=== PATIENT | male | born 1955 | race Caucasian/White ===

== ENCOUNTER 2016-07-09 21:07 | Observation (INO) | payer BC, OTHER ==
[~2016-07-09] VITALS: Ht 175.3 cm; Wt 78.8 kg
[~2016-07-09 21:07] MED LIST: OXYC1TAB3 PO
[2016-07-09] MEDS ORDERED: NITROGLYCERIN OINT 2% 1GM PACKET EXT STA (21:20)
[2016-07-09] MEDS ORDERED: SODIUM CHLORIDE 0.9% 1000ML 500 ML IV STA (21:20)
--- NOTE | 2016-07-09 21:26 | EMERGENCY ROOM VISIT NOTE ---
History Report prepared by Michelle: Glenroy Morris Under the Supervision of: Dr. León Bruce M.D. First contact with patient: 21:11 Chief Complaint: CHEST PAIN Stated Complaint: CHEST PAIN Nursing Triage Summary: Patient presents ALS from home for evaluation of midsternal chest pain that began 2 days ago. Associates SOB. Pain relieved after 1 Nitro spray and 4 baby ASA in route. History of Present Illness The patient is a 61 year old male who presents to the Emergency Room via ALS with complaints of intermittent midsternal chest pain that began 2 days ago. When the patient experiences the pain, it lasts for about 20 minutes. The patient rates his pain tonight an 8/10. Associated symptoms include shortness of breath, nausea, and dizziness. The patient was given 1 nitro and 4 baby Aspirin en-route which offered relief of the pain. He denies a cough, fevers, shoulder pain, or any additional associated symptoms. Source of History: patient Onset: 2 days ago Position: chest Symptom Intensity: 8/10 Timing: intermittent Modifying Factors (Relieving): other (Nitro and Aspirin ) Associated Symptoms: + SOB, + nausea Note: Additional associated symptoms include dizziness Review of Systems See HPI for pertinent positives & negatives. A total of 10 systems reviewed and were otherwise negative. Past Medical & Surgical Medical Problems: (1) Chest pain Social History Problems: (1) Alcohol use Family History Depression Hypertension Kidney disease Social History Smoking Status: Current Every Day Smoker Alcohol Use: occasionally Drug Use: none Housing Status: lives with family Occupation Status: employed Current/Historical Medications Scheduled Cephalexin Monohydrate (Keflex), 500 MG PO QID Metformin Hcl (Glucophage), 500 MG PO QAM Allergies Coded Allergies: No Known Allergies (Unverified , 01/15/16) Physical Exam Vital Signs Date Time Temp Pulse Resp B/P Pulse Ox O2 Delivery O2 Flow Rate FiO2 07/09/16 21:19 94 Room Air 07/09/16 21:15 78 07/09/16 21:14 36.7 85 18 116/86 94 Room Air 07/09/16 21:14 94 Room Air Physical Exam GENERAL: Patient is in no acute distress. HEENT: No acute trauma, normocephalic atraumatic, mucous membranes moist, no nasal congestion, no scleral icterus. NECK: No stridor, no adenopathy, no meningismus, trachea is midline. LUNGS: Clear to auscultation bilaterally, no wheeze, no rhonchi, breath sounds equal. HEART: Without murmurs gallops or rubs, regular rate and rhythm. CHEST: Mildly tender to lower chest wall, primarily over the sternum. ABDOMEN: Soft, nontender, bowel sounds positive, no hernias, no peritonitis. EXTREMITIES: No cyanosis or edema, full range of motion of all the joints without pain or difficulty, no signs for acute trauma. NEUROLOGIC: Oriented x 3, no acute motor or sensory deficits, no focal weakness. SKIN: No rash, no jaundice, no diaphoresis. Medical Decision & Procedures ER Provider Diagnostic Interpretation: X-ray results as stated below per interpretation by me and the radiologist: CHEST ONE VIEW PORTABLE CLINICAL HISTORY: Atypical chest pain COMPARISON STUDY: No previous studies for comparison. FINDINGS: The heart is at the upper limits of normal in size. There is mild asymmetric interstitial thickening right greater than left. This could represent asymmetric edema, interstitial inflammatory process, or be chronic. There are no pleural effusions. There is no pneumothorax.[ IMPRESSION: Mild age-indeterminate interstitial thickening right greater than left. Electronically signed by: Tye Layton M.D. 07/09/2016 9:36 PM Dictated Date/Time: 07/09/2016 9:35 PM Laboratory Results 07/09/16 20:48 07/09/16 20:48 Test 07/09/16 20:48 Red Blood Count 4.86 M/uL (4.7-6.1) Mean Corpuscular Volume 87.4 fL (80-100) Mean Corpuscular Hemoglobin 31.3 pg (25-34) Mean Corpuscular Hemoglobin Concent 35.8 g/dl (32-36) RDW Standard Deviation 40.9 fL (36.4-46.3) RDW Coefficient of Variation 12.7 % (11.5-14.5) Mean Platelet Volume 11.6 fL (7.4-10.4) Anion Gap 8.0 mmol/L (3-11) Est Creatinine Clear Calc Drug Dose 69.7 ml/min Estimated GFR () 82.9 Estimated GFR (Non- 71.6 BUN/Creatinine Ratio 12.3 (10-20) Calcium Level 8.2 mg/dl (8.5-10.1) Total Bilirubin 0.3 mg/dl (0.2-1) Alanine Aminotransferase (ALT/SGPT) 28 U/L (12-78) Alkaline Phosphatase 83 U/L (45-117) Creatine Kinase MB 0.8 ng/ml (0.5-3.6) Creatine Kinase MB Ratio (0-3.0) Troponin I < 0.015 ng/ml (0-0.045) Total Protein 7.0 gm/dl (6.4-8.2) Albumin 3.6 gm/dl (3.4-5.0) Globulin 3.4 gm/dl (2.5-4.0) Albumin/Globulin Ratio 1.1 (0.9-2) Lipase 203 U/L (73-393) Laboratory results reviewed by me. Medications Administered Medications (Trade) Dose Ordered Sig/Louisa Route Start Time Stop Time Status Last Admin Dose Admin Sodium Chloride (Nss 1000ml) 500 ml @ 999 mls/hr Q31M STAT IV 07/09/16 21:20 07/09/16 21:50 DC 07/09/16 21:45 999 MLS/HR Nitroglycerin (Nitroglycerin 2% Oint) 1 inch NOW STAT EXT 07/09/16 21:20 07/09/16 21:24 DC 07/09/16 21:45 1 INCH ECG Indication: chest pain Rate (beats per minute): 79 Rhythm: normal sinus Findings: no acute ischemic change, no ectopy ED Course 2117: The patient was evaluated in room A11. A complete history and physical exam was performed. 2119: Ordered Nitroglycerin 1 inch EXT, Sodium Chloride 500 ml @ 999 mls/hr IV. 2211: Discussed the patient's case with Dr. Hawk ([facility]) . The patient will be evaluated for further management. Medical Decision Differential diagnosis includes but is not limited to cardiac ischemia, SD, musculoskeletal pain, pneumonia, pulmonary embolism, pneumothorax, aortic dissection. There is no leukocytosis or concerning anemia. No significant electrolyte abnormality, kidney failure or hepatitis. There is no coagulopathy. EKG shows a normal sinus rhythm, no acute ischemia. Cardiac enzyme testing 1 is not consistent with acute cardiac injury. Chest x-ray shows no mediastinal widening , pneumonia or pneumothorax. The patient presents with worsening chest pain, at times, the pain is exertional and resolves with rest. He does have multiple cardiac risk factors. I do think further cardiac workup is warranted. Of note, the patient's chest pain this evening was resolved with nitroglycerin. Patient received IV saline and nitroglycerin paste, he is comfortable. I spoke with the patient and case management. The on-call hospitalist was consulted. Consults Time Called: 2203 Consulting Physician: Dr. Hawk ([facility]) Returned Call: [phone] Discussed the patient's case with Dr. Hawk ([facility]) . The patient will be evaluated for further management. Impression Primary Impression: Precordial chest pain Scribe Attestation The scribe's documentation has been prepared under my direction and personally reviewed by me in its entirety. I confirm that the note above accurately reflects all work, treatment, procedures, and medical decision making performed by me. Departure Information Dispostion Being Evaluated By Hospitalist Referrals No Doctor, Assigned (PCP) Patient Instructions My [facility]
--- NOTE | 2016-07-09 21:27 | EMERGENCY ROOM VISIT NOTE ---
History Report prepared by Michelle: Glenroy Morris Under the Supervision of: Dr. León Bruce M.D. First contact with patient: 21:11 Chief Complaint: CHEST PAIN Stated Complaint: CHEST PAIN History of Present Illness The patient is a 61 year old male who presents to the Emergency Room with complaints of chest pain Review of Systems See HPI for pertinent positives & negatives. A total of 10 systems reviewed and were otherwise negative. Past Medical & Surgical Social History Problems: (1) Alcohol use Family History Depression Hypertension Kidney disease Social History Smoking Status: Current Every Day Smoker Alcohol Use: occasionally Drug Use: none Housing Status: lives with family Occupation Status: employed Current/Historical Medications Scheduled PRN Oxycodone Immediate Rel Tab (Roxicodone Ir), 1-2 TAB PO Q4H PRN for Severe Pain Allergies Coded Allergies: No Known Allergies (Unverified , 01/15/16) Physical Exam Vital Signs Date Time Temp Pulse Resp B/P Pulse Ox O2 Delivery O2 Flow Rate FiO2 07/09/16 21:19 94 Room Air 07/09/16 21:15 78 07/09/16 21:14 36.7 85 18 116/86 94 Room Air 07/09/16 21:14 94 Room Air Physical Exam GENERAL: Patient is in no acute distress. HEENT: No acute trauma, normocephalic atraumatic, mucous membranes moist, no nasal congestion, no scleral icterus. NECK: No stridor, no adenopathy, no meningismus, trachea is midline. LUNGS: Clear to auscultation bilaterally, no wheeze, no rhonchi, breath sounds equal. HEART: Without murmurs gallops or rubs, regular rate and rhythm. CHEST: Mildly tender to lower chest wall, over the sternum. ABDOMEN: Soft, nontender, bowel sounds positive, no hernias, no peritonitis. EXTREMITIES: No cyanosis or edema, full range of motion of all the joints without pain or difficulty, no signs for acute trauma. NEUROLOGIC: Oriented x 3, no acute motor or sensory deficits, no focal weakness. SKIN: No rash, no jaundice, no diaphoresis. Medical Decision & Procedures Laboratory Results 07/09/16 20:48 Test 07/09/16 20:48 07/09/16 21:20 Red Blood Count 4.86 M/uL (4.7-6.1) Mean Corpuscular Volume 87.4 fL (80-100) Mean Corpuscular Hemoglobin 31.3 pg (25-34) Mean Corpuscular Hemoglobin Concent 35.8 g/dl (32-36) RDW Standard Deviation 40.9 fL (36.4-46.3) RDW Coefficient of Variation 12.7 % (11.5-14.5) Mean Platelet Volume 11.6 fL (7.4-10.4) Creatine Kinase MB Ratio (0-3.0) ED Course 2112: The patient was evaluated in room A11. A complete history and physical exam was performed. Scribe Attestation The scribe's documentation has been prepared under my direction and personally reviewed by me in its entirety. I confirm that the note above accurately reflects all work, treatment, procedures, and medical decision making performed by me. Departure Information Referrals No Doctor, Assigned (PCP) Patient Instructions My [facility]
[2016-07-09 21:34] LABS: HEMATOCRIT 42.5 % (42-52); MEAN CELL VOLUME 87.4 fL (80-100); MEAN CORPUSCULAR HEMOGLOBIN 31.3 pg (25-34); MEAN CORPUSCULAR HGB CONC 35.8 g/dl (32-36); MEAN PLATELET VOLUME 11.6 fL (7.4-10.4); PLATELET COUNT 186 K/uL (130-400); RED BLOOD COUNT 4.86 M/uL (4.7-6.1)
--- NOTE | 2016-07-09 21:38 | DIAGNOSTIC IMAGING REPORT ---
CHEST ONE VIEW PORTABLE CLINICAL HISTORY: Atypical chest pain COMPARISON STUDY: No previous studies for comparison. FINDINGS: The heart is at the upper limits of normal in size. There is mild asymmetric interstitial thickening right greater than left. This could represent asymmetric edema, interstitial inflammatory process, or be chronic. There are no pleural effusions. There is no pneumothorax.[ IMPRESSION: Mild age-indeterminate interstitial thickening right greater than left. Electronically signed by: Tye Layton M.D. 07/09/2016 9:36 PM Dictated Date/Time: 07/09/2016 9:35 PM
[2016-07-09] MEDS ORDERED: GLC/500 PO (21:55)
[2016-07-09] MEDS ORDERED: CEPH500C2 PO (21:56)
[2016-07-09 21:59] LABS: ALB/GLOB RATIO 1.1 (0.9-2); ALKALINE PHOSPHATASE 83 U/L (45-117); ALT/SGPT 28 U/L (12-78); BLOOD UREA NITROGEN 14 mg/dl (7-18); BUN/CREATININE RATIO 12.3 (10-20); CALCIUM 8.2 mg/dl (8.5-10.1); CARBON DIOXIDE 25 mmol/L (21-32); CHLORIDE 107 mmol/L (98-107); GLUCOSE 203 mg/dl (70-99); SODIUM 140 mmol/L (136-145)
--- NOTE | 2016-07-09 22:22 | History and Physical ---
History & Physical Date & Time of Service: Jul 09, 2016 at 22:23 Chief Complaint: Chest Pain Primary Care Physician: Ko Agustin M.D. History of Present Illness Source: patient This is a 61 yo Male with no significant past medical hx except for chronic tobacco abuse ,borderline Diabetes , hx of ETOH abuse presents to ED with complain of chest pain sub sternal intermittent for past 2- 3 days describes pain as pressure " someone sitting on chest " brought on by exertion , associated with nausea , SOB ,dizzy spell no radiation to arm or jaw pain resolves with rest had not sick any medical help today evening had continued discomfort -came to ED symptom relieved after SL nitro EKG NSR , no ischemic change cardiac markers negative pt is completely symptom free no prior hx of ND or CAD Family History Depression Hypertension Kidney disease Family History Problem Relation Age of Onset Comments COPD Mother Diabetes Sister Diabetes Sister Stroke Sister Social History Smoking Status: Current Every Day Smoker Alcohol Use: heavy Drug Use: none Marital Status: Occupational Status: employed Allergies Coded Allergies: No Known Allergies (Unverified , 01/15/16) Home Medications Scheduled Cephalexin Monohydrate (Keflex), 500 MG PO QID Metformin Hcl (Glucophage), 500 MG PO QAM Review of Systems Constitutional: + sweats, + weakness Respiratory: + dyspnea on exertion, + shortness of breath Cardiovascular: + chest pain, + palpitations, + problem reported (as outlined in H&P ) Abdomen: No GI bleeding, No constipation, No diarrhea, No nausea, No pain, No problem reported, No vomiting Musculoskeletal: No calf pain, No joint pain, No muscle pain, No problem reported, No swelling Neurologic: + vertigo, + weakness Psychiatric: + anxiety Physical Exam Vital Signs Date Time Temp Pulse Resp B/P Pulse Ox O2 Delivery O2 Flow Rate FiO2 07/09/16 21:19 94 Room Air 07/09/16 21:15 78 07/09/16 21:14 36.7 85 18 116/86 94 Room Air 07/09/16 21:14 94 Room Air General Appearance: no apparent distress Head: normocephalic, atraumatic Eyes: normal inspection, sclerae normal ENT: pharynx normal Neck: supple, no adenopathy, thyroid normal, no JVD, no carotid bruits, trachea midline Respiratory/Chest: chest non-tender, lungs clear, normal breath sounds, no respiratory distress, no accessory muscle use Cardiovascular: regular rate, rhythm, no edema, no gallop, no JVD, no murmur, normal peripheral pulses Abdomen/GI: normal bowel sounds, non tender, soft Extremities/Musculoskelatal: no calf tenderness, normal capillary refill, no pedal edema, + pertinent finding (left great toe ingworn toe nail , no flactuation or abscess ) Neurologic/Psych: no motor/sensory deficits, alert, normal mood/affect Skin: normal color, warm/dry, no rash Lymphatic: no adenopathy Diagnostics Laboratory Results Results Past 24 Hours Test 07/09/16 20:48 07/09/16 22:13 Range/Units White Blood Count 7.70 4.8-10.8 K/uL Red Blood Count 4.86 4.7-6.1 M/uL Hemoglobin 15.2 14.0-18.0 g/dL Hematocrit 42.5 42-52 % Mean Corpuscular Volume 87.4 80-100 fL Mean Corpuscular Hemoglobin 31.3 25-34 pg Mean Corpuscular Hemoglobin Concent 35.8 32-36 g/dl RDW Standard Deviation 40.9 36.4-46.3 fL RDW Coefficient of Variation 12.7 11.5-14.5 % Platelet Count 186 130-400 K/uL Mean Platelet Volume 11.6 7.4-10.4 fL Prothrombin Time 9.7 9.0-12.0 SECONDS Prothromb Time International Ratio 0.9 0.9-1.1 Activated Partial Thromboplast Time 23.7 21.0-31.0 SECONDS Partial Thromboplastin Ratio 0.9 Sodium Level 140 136-145 mmol/L Potassium Level 3.5-5.1 mmol/L Chloride Level 107 98-107 mmol/L Carbon Dioxide Level 25 21-32 mmol/L Anion Gap 8.0 3-11 mmol/L Blood Urea Nitrogen 14 7-18 mg/dl Creatinine 1.10 0.60-1.40 mg/dl Est Creatinine Clear Calc Drug Dose 69.7 ml/min Estimated GFR () 82.9 Estimated GFR (Non- 71.6 BUN/Creatinine Ratio 12.3 10-20 Random Glucose 203 70-99 mg/dl Calcium Level 8.2 8.5-10.1 mg/dl Total Bilirubin 0.3 0.2-1 mg/dl Aspartate Amino Transf (AST/SGOT) 15-37 U/L Alanine Aminotransferase (ALT/SGPT) 28 12-78 U/L Alkaline Phosphatase 83 45-117 U/L Total Creatine Kinase 39-308 U/L Creatine Kinase MB 0.8 0.5-3.6 ng/ml Creatine Kinase MB Ratio 0-3.0 Troponin I < 0.015 0-0.045 ng/ml Total Protein 7.0 6.4-8.2 gm/dl Albumin 3.6 3.4-5.0 gm/dl Globulin 3.4 2.5-4.0 gm/dl Albumin/Globulin Ratio 1.1 0.9-2 Lipase 203 73-393 U/L Chemistry Specimen Hemolysis CXR normal Normal EKG Impression Assessment and Plan CHEST PAIN : atypical for cardiac ischemia /angina has been ongoing for 2-3 days non ischemic change in EKG, initial cardiac marker negative D dimer wnl pro BNP 8 -no evidence of CHF CXray shows rt sided interstitial prominence -possible chronic 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 He states that he could drink 30 beers a day and a bottle of two of whiskey Quit drinking in April 2016 denies of drug use. Serum ETOH level , urine tox screen ordered INGROWN TOE NAIL on PO Keflex 500 mg PO QID for 10 days ( started on 07/02/16 ) continued no evidence of cellulitis or abscess cont out pt Podiatry follow up FULL CODE DISPOSITION : possible discharge home tomorrow if cardiac testing /stress test negative for ischemia Medicine follow up with Dr Jonna March Level of Care Telemetry Resuscitation Status FULL RESUSCITATION VTE Prophylaxis Given or contraindicated: Unfractionated heparin SQ
[2016-07-09 22:53] LABS: INR 0.9 (0.9-1.1); PARTIAL THROMBOPLASTIN RATIO 0.9; PROTHROMBIN TIME (PATIENT) 9.8 SECONDS (9.0-12.0)
[2016-07-09] MEDS ORDERED: GLUCOSE 40% GEL 15 GM TUBE PO PRN (23:00)
[2016-07-09] MEDS ORDERED: ONDANSETRON INJ 2 MG/ML 2 ML VIAL IV PRN (23:00)
[2016-07-09] MEDS ORDERED: ACETAMINOPHEN 325 MG TAB PO PRN (23:00)
[2016-07-09] MEDS ORDERED: ZOLPIDEM TARTRATE 5 MG TAB PO PRN (23:00)
[2016-07-09] MEDS ORDERED: NITROGLYCERIN 0.4 MG SL PER TAB CHARGE SL PRN (23:00)
[2016-07-09] MEDS ORDERED: POLYETHYLENE (MIRALAX) 17 GM PACK PO PRN (23:00)
[2016-07-09] MEDS ORDERED: DEXTROSE 50% 50 ML SYR IV PRN (23:00)
[2016-07-09] MEDS ORDERED: MAGNESIUM HYDROXIDE SUSP 30 ML UDC PO PRN (23:00)
[2016-07-09] MEDS ORDERED: GLUCAGON FOR INJ 1 MG VIAL SQ PRN (23:00)
[2016-07-09] MEDS ORDERED: ALUMINUM/MAGNESIUM/SIMETH (MAALOX MAX) 30 ML UDC PO PRN (23:00)
[2016-07-09] MEDS ORDERED: GLUCOSE 10 TABS/TUBE PO PRN (23:00)
[2016-07-09] MEDS ORDERED: IV FLUIDS COMPLETED PRN (23:15)
[2016-07-10 00:30] VITALS: BP 119/68; PULSE 70; TEMP 36.5; O2SAT 92; Ht 175.3 cm; Wt 78.8 kg
[2016-07-10] MEDS: HEPARIN SOD 5000 UNIT/0.5 ML CARP SQ SCH ×2 (06:00→13:12)
[2016-07-10 06:01] LABS: CKMB/CK RATIO 1.7 (0-3.0)
[2016-07-10 07:09] VITALS: BP 125/73; PULSE 69; TEMP 36.6; O2SAT 91
[2016-07-10] MEDS: INSULIN HUMAN REGULAR SC SCH ×2 (07:57→11:53)
[2016-07-10 08:00] VITALS: O2SAT 92
[2016-07-10 08:33] LABS: CHOLESTEROL/HDL RATIO 3.5
[2016-07-10] MEDS ORDERED: ASPIRIN 81 MG ECTAB PO SCH (09:00)
[2016-07-10 10:02] LABS: BENZODIAZEPINE, URINE NEG (NEG); COCAINE,URINE NEG (NEG); PHENCYCLIDINE, URINE NEG (NEG)
[2016-07-10 11:16] VITALS: BP 118/78; PULSE 74; TEMP 36.8; O2SAT 94
--- NOTE | 2016-07-10 11:25 | EXERCISE STRESS ECHO ---
*NOTICE TO RECEIVING LIBERTARIAN AGENCY This information is strictly Confidential and protected under [place] law. [place] law prohibits you from making any further disclosure of this information unless further disclosure is expressly permitted by the written consent of the person to whom it pertains or is authorized by law. A general authorization for the release of medical or other information is not sufficient for this purpose. Hospital accepts no responsibility if the information is made available to any other person, INCLUDING THE PATIENT. Interpretation Summary * Name: KHLOE HOLLOWAY Study Date: 07/10/2016 09:19 AM BP: 132/76 mmHg * Patient Location: [facility]\S\N287\S\1 HR: 64 * : 1955 (M/d/yyyy) Gender: Male Height: 69 in * Age: 61 yrs Ethnicity: CA Weight: 176 lb * Ordering Physician: Elizabeth Hawk * Referring Physician: Self, Referred * Performed By: Levy Ward RCS * * Reason For Study: Chest Pain * BSA: 2.0 m2 * -- Conclusions -- * Nondiagnostic exercise stress echocardiogram. * Poor post-stress windows due to lung disease and patient's inability to cooperate with breathing. * No arrhythhmias. * No ischemic EKG changes. * Symptom of chest tightness was not reproduced with exercise. * Normal HR and BP response to exercise. * Average exercise tolerance. * At rest, normal LV chamber size and wall thickness. * Normal LV systolic function, EF 55-60%. * No segmental left ventricular wall motion abnormalities are noted. * Grade I diastolic dysfunction. * No significant valvular pathology. Procedure Details * ECHOEX, CPT #[id number] * ECHO COLOR FLOW, CPT #[id number] * ECHO DOPPLER, CPT #[id number] Left Ventricle * The left ventricle is normal in size. * There is normal left ventricular wall thickness. * Ejection Fraction = 55-60%. * Left ventricular systolic function is normal. * No segmental left ventricular wall motion abnormalities are noted. * The left ventricular wall motion is normal at rest. Right Ventricle * The right ventricular cavity size is normal (basal dimension <4.2 cm in right ventricular apical 4-chamber view). * The right ventricular systolic function is normal as assessed by tricuspid annular plane systolic excursion (TAPSE) (normal >1.5 cm). Atria * The left atrial size is normal. * Right atrium not well visualized. * Right atrial size is normal. * No ASD detected; PFO is not assessed. Mitral Valve * The mitral valve is normal in structure and function. Tricuspid Valve * The tricuspid valve is normal in structure and function. Aortic Valve * The aortic valve is normal in structure and function. Pulmonic Valve * The pulmonary valve is not well seen, but the Doppler examination is normal without significant regurgitation or stenosis. Great Vessels * The aortic root is normal size. Pericardium * There is no pericardial effusion. Stress Parameters * Normal baseline electrocardiogram. * Stress ECG: No ST changes. No arrhythmias. * No arrhythmia were noted with stress. * The stress portion of this study was personally supervised by the undersigned interpreting physician. * Rest heart rate was '64' BPM. * Rest blood pressure was '132/76' * Maximum heart rate achieved was 146 bpm. * Maximum heart rate was 92 % of maximum age-predicted heart rate. * Maximum blood pressure was '186/77' * Total exercise time was '7:32' * Maximum exercise MET level achieved was '9.3' METS * Maximum treadmill speed was '3.4' miles per hour. * Maximum treadmill elevation was '14'% grade. * Exercise was terminated due to 'fatigue after achieving target heart rate' * Normal blood pressure response to exercise. Left Ventricular Diastolic Function * Grade I diastolic dysfunction, (abnormal relaxation pattern). MMode 2D Measurements and Calculations IVSd 10 cm IVSs 1.2 cm LVIDd 5.2 cm LVIDs 3.6 cm LVPWd 1.0 cm LVPWs 1.3 cm IVS/LVPW 0.97 FS 29.6 % EDV(Teich) 127.4 ml ESV(Teich) 55.7 ml EF(Teich) 56.3 % EDV(cubed) 137.7 ml ESV(cubed) 48.0 ml EF(cubed) 65.1 % % IVS thick 21.2 % % LVPW thick 23.3 % LV mass(C)d 195.3 grams LV mass(C)dI 99.8 grams/m\S\2 LV mass(C)s 150.5 grams LV mass(C)sI 76.9 grams/m\S\2 CO(Teich) 4.6 l/min CI(Teich) 2.3 l/min/m\S\2 SV(Teich) 71.8 ml SI(Teich) 36.7 ml/m\S\2 CO(cubed) 5.7 l/min CI(cubed) 2.9 l/min/m\S\2 SV(cubed) 89.7 ml SI(cubed) 45.8 ml/m\S\2 Ao root diam 3.2 cm Ao root area 8.2 cm\S\2 ACS 1.8 cm LA dimension 3.7 cm LA/Ao 1.1 LVAd ap4 33.9 cm\S\2 LVLd ap4 8.8 cm EDV(MOD-sp4) 109.0 ml LVAs ap4 19.5 cm\S\2 LVLs ap4 7.1 cm ESV(MOD-sp4) 46.0 ml EF(MOD-sp4) 57.8 % LVAd ap2 33.8 cm\S\2 LVLd ap2 9.1 cm EDV(MOD-sp2) 106.0 ml LVAs ap2 18.5 cm\S\2 LVLs ap2 7.2 cm ESV(MOD-sp2) 42.0 ml EF(MOD-sp2) 60.4 % CO(MOD-sp4) 4.0 l/min CI(MOD-sp4) 2.1 l/min/m\S\2 SV(MOD-sp4) 63.0 ml SI(MOD-sp4) 32.2 ml/m\S\2 CO(MOD-sp2) 4.1 l/min CI(MOD-sp2) 2.1 l/min/m\S\2 SV(MOD-sp2) 64.0 ml SI(MOD-sp2) 32.7 ml/m\S\2 Doppler Measurements and Calculations MV E max mary jo 93.2 cm/sec MV A max mary jo 117.2 cm/sec MV E/A 0.79 MV P1/2t max mary jo 78.6 cm/sec MV P1/2t 88.6 msec MVA(P1/2t) 2.5 cm\S\2 MV dec slope 259.8 cm/sec\S\2 MV dec time 0.21 sec Ao V2 max 138.8 cm/sec Ao max PG 7.7 mmHg Ao max PG (full) 2.5 mmHg LV V1 max PG 5.2 mmHg LV V1 max 113.5 cm/sec PA V2 max 125.0 cm/sec PA max PG 6.3 mmHg PI max mary jo 220.2 cm/sec PI max PG 19.4 mmHg PI dec slope 153.8 cm/sec\S\2 PI P1/2t 419.3 msec TR max mary jo 247.9 cm/sec
[2016-07-10 12:00] VITALS: O2SAT 94
[2016-07-10 13:49] LABS: CKMB/CK RATIO 1.1 (0-3.0)
--- NOTE | 2016-07-10 14:17 | Progress Note ---
Internal Med Progress Note Date of Service: Jul 10, 2016. Provider Documentation: SUBJECTIVE: Patient is walking around his room and is alert/awake. Denies any chest pain/ pressure or SOB. No other new change. OBJECTIVE: Vital Signs-as noted below Examination: General Appearance: Alert / Awake and is in no apparent distress Head: normocephalic, atraumatic Eyes: normal inspection, sclerae normal ENT: pharynx normal Neck: supple, no adenopathy, thyroid normal, no JVD, no carotid bruits, trachea midline Respiratory/Chest: chest non-tender, lungs clear, normal breath sounds, no respiratory distress, no accessory muscle use Cardiovascular: regular rate, rhythm, no edema, no gallop, no JVD, no murmur, normal peripheral pulses Abdomen/GI: normal bowel sounds, non tender, soft Extremities/Musculoskeletal: no calf tenderness, normal capillary refill, no pedal edema, left great toe ingworn toe nail , no fluctuation or abscess. Neurologic/Psych: no motor/sensory deficits, alert, normal mood/affect Skin: normal color, warm/dry, no rash Lymphatic: no adenopathy Lab data as noted below. ASSESSMENT & PLAN: Nondiagnostic Exercise Stress Echocardiogram. Poor post-stress windows due to lung disease and patient's inability to cooperate with breathing. No arrhythmias. No ischemic EKG changes. Symptom of chest tightness was not reproduced with exercise. Normal HR and BP response to exercise. Average exercise tolerance. At rest, normal LV chamber size and wall thickness. Normal LV systolic function, EF 55-60%. No segmental left ventricular wall motion abnormalities are noted. Grade I diastolic dysfunction. No significant valvular pathology. Chest Pain: Resolved now. Likely not cardiac in etiology. Clinically & hemodynamically stable.- -Serial Troponin are negative. -Non ischemic change in EKG -Chest Xray shows rt sided interstitial prominence -possible chronic change -fpc heavy smoker -Fasting lipid profile shows HDL 44 & LDL 88. -Reviewed Stress Echo. Nuclear Stress will be done as outpatient. Active Tobacco Use: Smokes 1.5 pk Cig a day since age 13 -Smoking cessation counselling provided -Ordered for nicotine patch Diabetes Type II: Hb A1 C 6.7 -takes Metformin as outpatient which will be resumed after discharge. -Dietary instructions given History Alcohol Use: Patient has been a heavy drinker for years. He states that he could drink 30 beers a day and a bottle of two of whiskey -Quit drinking in April 2016 Ingrown Toe Nail: Continued PO Keflex 500 mg PO QID for 10 days ( started on 06/17 ) -No evidence of cellulitis or abscess -Continue out pt Podiatry follow up Code Status: FULL CODE Disposition: Discharge home later today Medicine follow up with PCP on 07/14/2016 @ 10.50 AM. Follow up with cardiology in 1-2 weeks, Vital Signs: Date Time Temp Pulse Resp B/P Pulse Ox O2 Delivery O2 Flow Rate FiO2 07/10/16 12:00 94 Room Air 07/10/16 11:16 36.8 74 18 118/78 94 07/10/16 08:00 92 Room Air 07/10/16 07:09 36.6 69 18 125/73 91 07/10/16 04:00 Room Air 07/10/16 00:30 36.5 70 14 119/68 92 Room Air 07/09/16 23:02 81 20 127/78 93 Room Air 07/09/16 21:19 94 Room Air 07/09/16 21:15 78 07/09/16 21:14 36.7 85 18 116/86 94 Room Air 07/09/16 21:14 94 Room Air Lab Results: Results Past 24 Hours Test 07/09/16 20:48 07/09/16 22:30 07/10/16 00:20 07/10/16 05:24 Range/Units White Blood Count 7.70 4.8-10.8 K/uL Red Blood Count 4.86 4.7-6.1 M/uL Hemoglobin 15.2 14.0-18.0 g/dL Hematocrit 42.5 42-52 % Mean Corpuscular Volume 87.4 80-100 fL Mean Corpuscular Hemoglobin 31.3 25-34 pg Mean Corpuscular Hemoglobin Concent 35.8 32-36 g/dl RDW Standard Deviation 40.9 36.4-46.3 fL RDW Coefficient of Variation 12.7 11.5-14.5 % Platelet Count 186 130-400 K/uL Mean Platelet Volume 11.6 7.4-10.4 fL Prothrombin Time 9.8 9.0-12.0 SECONDS Prothromb Time International Ratio 0.9 0.9-1.1 Activated Partial Thromboplast Time 22.6 21.0-31.0 SECONDS Partial Thromboplastin Ratio 0.9 Sodium Level 140 136-145 mmol/L Potassium Level 4.0 3.5-5.1 mmol/L Chloride Level 107 98-107 mmol/L Carbon Dioxide Level 25 21-32 mmol/L Anion Gap 8.0 3-11 mmol/L Blood Urea Nitrogen 14 7-18 mg/dl Creatinine 1.10 0.60-1.40 mg/dl Est Creatinine Clear Calc Drug Dose 69.7 ml/min Estimated GFR () 82.9 Estimated GFR (Non- 71.6 BUN/Creatinine Ratio 12.3 10-20 Random Glucose 203 70-99 mg/dl Calcium Level 8.2 8.5-10.1 mg/dl Total Bilirubin 0.3 0.2-1 mg/dl Aspartate Amino Transf (AST/SGOT) 12 15-37 U/L Alanine Aminotransferase (ALT/SGPT) 28 12-78 U/L Alkaline Phosphatase 83 45-117 U/L Total Creatine Kinase 82 66 39-308 U/L Creatine Kinase MB 0.8 1.1 0.5-3.6 ng/ml Creatine Kinase MB Ratio 1.7 0-3.0 Troponin I < 0.015 < 0.015 0-0.045 ng/ml Total Protein 7.0 6.4-8.2 gm/dl Albumin 3.6 3.4-5.0 gm/dl Globulin 3.4 2.5-4.0 gm/dl Albumin/Globulin Ratio 1.1 0.9-2 Lipase 203 73-393 U/L Chemistry Specimen Hemolysis D-Dimer 390 0-500 ug/L FEU Pro-B-Type Natriuretic Peptide 8 0-900 pg/ml Ethyl Alcohol mg/dL < 3.0 0-3 mg/dl Triglycerides Level 102 0-150 mg/dl Cholesterol Level 152 0-200 mg/dl HDL Cholesterol 44 mg/dl LDL Cholesterol, Calculated 88 mg/dl VLDL Cholesterol, Calculated 20 mg/dl Cholesterol/HDL Ratio 3.5 Hepatitis C Antibody Screen NEG NEG Test 07/10/16 07:20 07/10/16 09:20 07/10/16 11:32 07/10/16 12:55 Range/Units Bedside Glucose 115 125 70-99 mg/dl Urine Opiates Screen NEG NEG Urine Methadone, Qualitative NEG NEG Urine Barbiturates NEG NEG Urine Phencyclidine (PCP) Level NEG NEG Ur Amphetamine/Methamphetamine NEG NEG MDMA (Ecstasy) Screen NEG NEG Urine Benzodiazepines Screen NEG NEG Urine Cocaine Metabolite NEG NEG Urine Marijuana (THC) NEG NEG Total Creatine Kinase 79 39-308 U/L Creatine Kinase MB 0.9 0.5-3.6 ng/ml Creatine Kinase MB Ratio 1.1 0-3.0 Troponin I < 0.015 0-0.045 ng/ml
--- NOTE | 2016-07-10 14:30 | Discharge Instructions ---
Discharge Instructions Admission Reason for Admission: Chest Pain Discharge Discharge Diagnosis / Problem: Chest pain (Resolved) Discharge Goals Goal(s): Decrease discomfort, Improve function, Increase independence, Improve disease control Activity Recommendations Activity Limitations: resume your previous activity Lifting Limitations: none Exercise/Sports Limitations: as tolerated May Resume Sexual Activity: when tolerated Shower/Bathe: no limitations Driving or Machine Use: no limitations NONE . Instructions / Follow-Up Instructions / Follow-Up Medicine follow up with PCP on 07/14/2016 @ 10.50 AM. Follow up with cardiology in 1-2 weeks, Current Hospital Diet Patient's current hospital diet: AHA Diet (Heart Healthy), Diabetes Type 2 Diet Discharge Diet Recommended Diet: AHA Diet (Heart Healthy), Diabetes Type 2 Diet Pending Studies Studies pending at discharge: no Laboratory Results Lipid Panel Test 07/10/16 05:24 Range/Units Triglycerides Level 102 0-150 mg/dl Cholesterol Level 152 0-200 mg/dl HDL Cholesterol 44 mg/dl Cholesterol/HDL Ratio 3.5 LDL Cholesterol, Calculated 88 mg/dl Medical Emergencies . Who to Call and When: Medical Emergencies: If at any time you feel your situation is an emergency, please call 911 immediately. . Non-Emergent Contact Non-Emergency issues call your: Primary Care Provider . . "Provider Documentation" section prepared by Navdeep Berger. VTE Core Measure Inpt VTE Proph given/why not?: Unfractionated heparin SQ
[2016-07-10 14:31] VITALS: BP 118/78; PULSE 74; TEMP 36.8; O2SAT 94
--- NOTE | 2016-07-10 14:34 | Discharge Summary ---
Discharge Summary Admission Date: Jul 09, 2016 at 22:27 Discharge Date: Jul 10, 2016 Discharge Disposition: Home Principal Diagnosis: Chest Pain (Resolved) Secondary Diagnoses/Problems: Diabetes Type II Active Tobacco Use History Alcohol Use Ingrown Toe Nail Procedures: Stress Echo Vaccinations: NONE Consultations: Cardiology Pending Studies/Follow-Up: Follow up with cardiology as outpatient to have Nuclear Stress Test done. Medication Reconciliation Continued Medications: Cephalexin Monohydrate (Keflex) 500 Mg Cap 500 MG PO QID for 10 Days, #40 CAP PRESCRIBED 07/02/2016, TAKE DIRECTED UNTIL GONE Metformin Hcl (Glucophage) 500 Mg Tab 500 MG PO QAM, TAB Metformin Hcl (Glucophage) 500 Mg Tab 500 MG PO QAM, TAB Admission Information HPI (per Admitting provider): This is a 61 yo Male with no significant past medical hx except for chronic tobacco abuse ,borderline Diabetes , hx of ETOH abuse presents to ED with complain of chest pain sub sternal intermittent for past 2- 3 days describes pain as pressure " someone sitting on chest " brought on by exertion , associated with nausea , SOB ,dizzy spell no radiation to arm or jaw pain resolves with rest had not sick any medical help today evening had continued discomfort -came to ED symptom relieved after SL nitro EKG NSR , no ischemic change cardiac markers negative pt is completely symptom free no prior hx of OK or CAD Physical Exam (per Admitting): General Appearance: no apparent distress Head: normocephalic, atraumatic Eyes: normal inspection, sclerae normal ENT: pharynx normal Neck: supple, no adenopathy, thyroid normal, no JVD, no carotid bruits, trachea midline Respiratory/Chest: chest non-tender, lungs clear, normal breath sounds, no respiratory distress, no accessory muscle use Cardiovascular: regular rate, rhythm, no edema, no gallop, no JVD, no murmur , normal peripheral pulses Abdomen/GI: normal bowel sounds, non tender, soft Extremities/Musculoskelatal: no calf tenderness, normal capillary refill, no pedal edema, + pertinent finding (left great toe ingworn toe nail , no flactuation or abscess ) Neurologic/Psych: no motor/sensory deficits, alert, normal mood/affect Skin: normal color, warm/dry, no rash Lymphatic: no adenopathy Hospital Course Nondiagnostic Exercise Stress Echocardiogram. Poor post-stress windows due to lung disease and patient's inability to cooperate with breathing. No arrhythmias. No ischemic EKG changes. Symptom of chest tightness was not reproduced with exercise. Normal HR and BP response to exercise. Average exercise tolerance. At rest, normal LV chamber size and wall thickness. Normal LV systolic function, EF 55-60%. No segmental left ventricular wall motion abnormalities are noted. Grade I diastolic dysfunction. No significant valvular pathology. Chest Pain: Resolved now. Likely not cardiac in etiology. Clinically & hemodynamically stable.- -Serial Troponin are negative. -Non ischemic change in EKG -Chest Xray shows rt sided interstitial prominence -possible chronic change -shelter heavy smoker -Fasting lipid profile shows HDL 44 & LDL 88. -Reviewed Stress Echo. Nuclear Stress will be done as outpatient. Active Tobacco Use: Smokes 1.5 pk Cig a day since age 13 -Smoking cessation counselling provided -Ordered for nicotine patch Diabetes Type II: Hb A1 C 6.7 -takes Metformin as outpatient which will be resumed after discharge. -Dietary instructions given History Alcohol Use: Patient has been a heavy drinker for years. He states that he could drink 30 beers a day and a bottle of two of whiskey -Quit drinking in April 2016 Ingrown Toe Nail: Continued PO Keflex 500 mg PO QID for 10 days ( started on 06/17 ) -No evidence of cellulitis or abscess -Continue out pt Podiatry follow up Code Status: FULL CODE Disposition: Discharge home later today Medicine follow up with PCP on 07/14/2016 @ 10.50 AM. Follow up with cardiology in 1-2 weeks, Total time spent on discharge = 35 minutes. This includes examination of the patient, discharge planning, medication reconciliation, and communication with other providers. Discharge Instructions Activity Recommendations Activity Limitations: resume your previous activity Lifting Limitations: none Exercise/Sports Limitations: as tolerated May Resume Sexual Activity: when tolerated Shower/Bathe: no limitations Driving or Machine Use: no limitations NONE . Instructions / Follow-Up Instructions / Follow-Up Medicine follow up with PCP on 07/14/2016 @ 10.50 AM. Follow up with cardiology in 1-2 weeks, Current Hospital Diet Patient's current hospital diet: AHA Diet (Heart Healthy), Diabetes Type 2 Diet Discharge Diet Recommended Diet: AHA Diet (Heart Healthy), Diabetes Type 2 Diet Additional Copies To Jonna March D.O.
--- NOTE | 2016-07-10 20:41 | CARDIOLOGY CONSULTATION ---
DATE OF CONSULTATION: 07/10/2016 CONSULTATION REQUESTED BY: Dr. Berger. REASON FOR CONSULTATION: Nondiagnostic stress test. HISTORY OF PRESENT ILLNESS: Mr. Villeda is a very pleasant 61-year-old gentleman who presented to [facility] Emergency Department on 07/09/2016 with a complaint of chest discomfort. He states that for the last several days he would just have a tightness across his chest when he would exert himself. He states it happened with some exertion but not all. He states that when he would walk around his house he will get it, but when he goes for his normal morning exercise walks in the [employer] he would not get it. The pain was also associated with occasional shortness of breath, nausea and dizziness, but again these will not occur with every episode so after a few days, he became concerned and came into the Emergency Department. In the Emergency Department, his initial workup was unremarkable. He was admitted to telemetry. After 2 negative sets of cardiac enzymes, he is referred for exercise stress echocardiogram which was performed. Unfortunately, the test was nondiagnostic after not being able to obtain satisfactory postexercise pictures due to the patient's underlying hyperinflated lung disease. PAST SURGICAL HISTORY: Ganglion cyst removal. MEDICAL ILLNESSES: Tobacco abuse. FAMILY HISTORY: Denies any premature coronary artery disease or sudden cardiac . SOCIAL HISTORY: The patient is a lifelong smoker and continues to smoke a pack and half of cigarettes a day. He has a former history of alcoholism, resolved. He states he has not had drink in over a year. He denies any recreational drug use. He is recently . He lost his about a year ago. REVIEW OF SYSTEMS: As per HPI, all other systems reviewed and negative at this time. ALLERGIES: No known drug allergies. MEDICATIONS AN OUTPATIENT: Keflex for a recent ingrown toenail. PHYSICAL EXAMINATION: VITALS: Temperature 36.6, pulse 69, respiratory rate 12, blood pressure 125/73. GENERAL: Awake, alert, oriented x3, in no acute distress. HEENT: Normocephalic, atraumatic. Pupils are equal, round, and reactive to light and accommodation. Extraocular muscles intact. Anicteric sclerae. Moist mucous membranes. NECK: No JVD, no bruit. CARDIOVASCULAR: Regular. Positive S4. Normal S1 and S2. No S3. No murmurs, rubs or gallops. PULMONARY: Poor air movement bilaterally but no rales, rhonchi or wheezing. ABDOMEN: Bowel sounds x4, soft. No rebound, guarding, tenderness. No organomegaly. EXTREMITIES: No clubbing, cyanosis or edema. +2 pedal pulses bilaterally. SKIN: Warm and dry. TEST RESULTS: A 12-lead EKG performed in the Emergency Department independently reviewed at this time shows normal sinus rhythm at 79 beats per minute, normal axis, normal intervals, normal study. No previous studies available for comparison. LABORATORY STUDIES OF SIGNIFICANCE: Troponin less than 0.015 x2. CPK of 82 followed by 66, total cholesterol 152, LDL 88, HDL 44, triglycerides 102. IMPRESSION: 1. Chest discomfort. 2. Nondiagnostic exercise stress echocardiogram. 3. Non-ST segment elevation myocardial infarction ruled out by cardiac enzymes. 4. Tobacco abuse. RECOMMENDATIONS: It was my pleasure to see Mr. Villeda in consultation today. At this point, the patient does not appear to be actively ischemic. However, given his risk factors for coronary artery disease, I do not believe further ischemic evaluation is warranted given the fact that his stress echocardiogram was nondiagnostic, so at this point, the patient can be discharged to home and we will arrange for close outpatient followup in our cardiology office for a Lexiscan nuclear stress test to be performed in the next day or two and further recommendations made at that time. Otherwise, given his history of tobacco abuse, I do recommend to start aspirin 81 mg daily. His cholesterol numbers are surprisingly good so no statin will be started at this time.
== END 2016-07-10 14:51 | disposition home or self-care (01) ==
LOC: ENRESERVDT → ENRESERVTM → EDBD 21:07 → C.EDA 21:08 → C.MED 22:27
PROVIDERS: ADMIT Hospitalist; ATTEND Emergency Medicine
DX: R07.9 Chest pain, unspecified (principal); L60.0 Ingrowing nail; E11.9 Type 2 diabetes mellitus without complications; F17.210 Nicotine dependence, cigarettes, uncomplicated; Z81.8 Family history of other mental and behavioral disorders; Z82.49 Family history of ischemic heart disease and other diseases of the circulatory system; Z84.1 Family history of disorders of kidney and ureter

== ENCOUNTER → 2016-07-25 | Outpatient (CLI) | payer OTHER ==
[~2016-07-25] MED LIST changes: +CEPH500C2 PO; +GLC/500 PO; +OFLO0.3D4 OTR; +OFLO0.3S OP; -OXYC1TAB3 PO
--- NOTE | 2016-07-25 10:49 | DIAGNOSTIC IMAGING REPORT ---
ANKLE BRACHIAL INDEX COMPLETE-ULTRASOUND CLINICAL HISTORY: TYPE 2 DIABETES. Peripheral probably with gangrene foot. COMPARISON STUDY: None. FINDINGS: The right ankle-brachial calculated with the posterior tibial artery was 1.1 and dorsalis pedis artery was 1.0. The left ankle-brachial index calculated with the posterior tibial artery was 1.1 and the dorsalis pedis artery was 0.9. IMPRESSION: 1. Right ankle brachial indices measuring between 1.0 and 1.1. 2. Left ankle brachial indices measuring between 0.9 and 1.1 Electronically signed by: Dayne Velazquez M.D. 07/25/2016 10:48 AM Dictated Date/Time: 07/25/2016 10:46 AM
== END | disposition home or self-care (01) ==
LOC: C.ULTR 09:12
PROVIDERS: ATTEND Podiatrist
DX: E11.51 Type 2 diabetes mellitus with diabetic peripheral angiopathy without gangrene (principal)

== ENCOUNTER 2017-02-20 09:54 | Emergency (ER) | payer SELFPAY ==
[~2017-02-20] VITALS: Ht 175.3 cm; Wt 72.1 kg
[~2017-02-20 09:54] MED LIST changes: -OFLO0.3D4 OTR; -OFLO0.3S OP
[2017-02-20 10:14] VITALS: TEMP 36.8; Ht 175.3 cm; Wt 72.1 kg
[2017-02-20] MEDS ORDERED: DOCUSATE SODIUM 100 MG/10 ML UDC PO STA (10:58)
--- NOTE | 2017-02-20 11:02 | EMERGENCY ROOM VISIT NOTE ---
History First contact with patient: 10:54 Chief Complaint: EAR WAX Stated Complaint: RT EAR-CAN'T HEAR History of Present Illness The patient is a 61 year old male who presents to the Emergency Room via private vehicle with complaints of "right ear wax, Here". The patient states about 4 weeks ago he noticed that he had decreased hearing in the right ear. He denies trauma or injury at that time. He states that it is been progressing , and every once in a while he will express a sharp pain in the right ear, followed by buzzing sound. He states he's never had this happen before. He denies any fevers or chills. There is been no drainage from the ear. Review of Systems A complete 6-point Review of Systems was discussed with the patient, with pertinent positives and negatives listed in the History of Present Illness. All remaining Review of Systems questions can be considered negative unless otherwise specified. Past Medical/Surgical History Medical Problems: (1) Chest pain Social History Problems: (1) Alcohol use Family History Depression Hypertension Kidney disease Social History Smoking Status: Current Every Day Smoker Alcohol Use: occasionally Drug Use: none Marital Status: Housing Status: lives with family Occupation Status: employed Current/Historical Medications Scheduled Ofloxacin (Oph) (Ocuflox Oph Soln), 1 DROPS OP DIRECTED Physical Exam Vital Signs Date Time Temp Pulse Resp B/P (MAP) Pulse Ox O2 Delivery O2 Flow Rate FiO2 02/20/17 12:31 58 18 120/71 98 02/20/17 10:14 36.8 69 16 133/80 93 Room Air Physical Exam VITAL SIGNS - Vital signs and nursing notes were reviewed.Stable. GENERAL - 61-year-old male appearing his stated age who is in no acute distress. Communicates well with provider and answers questions appropriately. SKIN - Without rashes. HEAD - NC/AT. EYES - PERRL with EOMI bilaterally. Sclera anicteric. EARS - No deformities of external structures noted on gross examination bilaterally. Left unremarkable. Right ear full of cerumen. No evidence of TM rupture or infection. NOSE - Midline and without cyanosis. No epistaxis or purulent drainage noted. Septum midline without deviation or septal hematoma noted. MOUTH/OROPHARYNX - Without perioral cyanosis. Buccal mucosa pink and moist and without leukoplakia. Tongue midline with equal elevation of palate bilaterally. No tonsillar hypertrophy, erythema, or exudates noted. Fair dentition noted. NECK - Neck with FROM. Supple to palpation. No lymphadenopathy noted. No nuchal rigidity. Medical Decision & Procedures Medications Administered Medications (Trade) Dose Ordered Sig/Louisa Route Start Time Stop Time Status Last Admin Dose Admin Docusate Sodium (coLACE SYRUP) 100 mg NOW STAT PO 02/20/17 10:58 02/20/17 10:59 DC 02/20/17 11:14 100 MG Ofloxacin (Ocuflox 0.3% Oph Soln) 1 drops NOW STAT OP 02/20/17 12:06 02/20/17 12:08 DC 02/20/17 12:21 1 DROPS Medical Decision Patient was seen and evaluated as above. He presents to us today with right ear discomfort, and decreased hearing. Examination reveals cerumen impaction. Colace was instilled into the patient's right ear. This was allowed to sit for approximately 15-20 minutes. This was then irrigated by the RN. I examined the patient, and the wax was still impacted. A small curet was utilized to remove some of the wax, and continue irrigation. Unfortunately the wax was driving to a point where it had sloughed some of the skin from the canal. There was some irritation and bleeding. There was no TM rupture. I then gently irrigated the ear some more. Patient tolerated this well. There was no sustained bleeding. The TM was intact. There was a small tunnel in the wax to the TM. The TM appeared to be in good repair. He was given ofloxacin eardrops , which will help further softener, to prevent infection. He's been referred here nose and throat, for further evaluation and management of the cerumen impaction. At this time I do not believe there is any emergent process. He was given a short prescription in case he ran out and is to take these for 10 days. He was also given the information for [facility] volunteers in medicine. He was educated upon worrisome symptoms which to return, had questions answered prior to shift, and was discharged. Is important at that believe that further irrigation and removal of the wax this time will cause irritation and no believe that the benefit outweighs the risk. In evaluation treatment this patient the following differential diagnoses were entertained: Cerumen impaction, TM rupture, otitis media, otitis externa, among others. Impression Primary Impression: Impacted cerumen of right ear Departure Information Dispostion Home / Self-Care Condition GOOD Prescriptions Ofloxacin (Oph) (OCUFLOX OPH SOLN) 0.3 % Jemal 1 DROPS OP DIRECTED for 10 Days, #1 BTL 2-3 drops in the right ear daily for 10 days. Prov: John Ceballos PA-C 02/20/17 Referrals No Doctor, Assigned (PCP) Jordon Camargo D.O. Patient Instructions My [facility] Additional Instructions You have been treated in the Emergency Department for a ear wax in your right ear. You were prescribed Ofloxacin ear drops to be taken Instill 2 to 3 drops once daily for 10 days in the right ear. This is an antibiotic. All antibiotics have the potential to cause diarrhea. Stop this medication and contact a medical provider if you were to develop any significant adverse side effects including: wheezing, shortness of breath, passing out, vomiting, or a diffuse rash. Always take antibiotics as directed and COMPLETE the ENTIRE course regardless of the improvement of your symptoms. You should follow-up with your Primary Care Provider from today's Emergency Department visit. Return to the emergency department if you develop the following symptoms despite treatment course outlined above: headache, fever, intractable pain, increased redness, swelling, or purulent discharge. Please follow up with ENT (ear nose and throat doctor) by calling them as soon as possible (Dr. Camargo)
[2017-02-20] MEDS ORDERED: OFLOXACIN 0.3% OP SOLN 5 ML BTL OP STA (12:06)
[2017-02-20] MEDS ORDERED: OFLO0.3D4 OTR (12:10)
[2017-02-20] MEDS ORDERED: OFLO0.3S OP (12:29)
[2017-02-20 12:31] VITALS: BP 120/71; PULSE 58; O2SAT 98
== END 2017-02-20 12:31 | disposition home or self-care (01) ==
LOC: C.EDB 09:55 → C.EDD 12:31
DX: H61.21 Impacted cerumen, right ear (principal); F17.200 Nicotine dependence, unspecified, uncomplicated; Z82.49 Family history of ischemic heart disease and other diseases of the circulatory system; Z81.8 Family history of other mental and behavioral disorders